=== PATIENT | female | born 1930 | race African-American/Black ===

== ENCOUNTER 2017-03-06 12:59 | Inpatient (IN) | payer MEDICARE, OTHER ==
--- NOTE | ~2017-03-06 | DS ---
Discharge Summary [facility] [address] [place]. [address] NAME: STELLA CASTRO : 31 STATUS : ADM IN [facility]#: [id number] AGE: 87 ADM/REG DATE : 03/08/17 MR#: [id number] REPORT SERV DATE: 03/11/17 DICTATED BY: EVERARDO PABLO DATE: 03/11/17 REPORT STATUS : Draft TRANSCRIBED BY: MODL DATE: 03/11/17 ADMISSION DATE: 03/08/2017 DISCHARGE DATE: 03/11/2017 DISCHARGE DIAGNOSES: 1. Acute urinary retention due to rectocele, currently resolved. 2. Constipation, currently resolved. 3. Acute exacerbation of asthma with chronic obstructive pulmonary disease, improving. 4. Hypertension, somewhat uncontrolled. 5. Acute kidney injury, now resolved. 6. Hyperlipidemia. 7. Possibility of volume overload, currently resolved. No evidence of heart failure. CONSULTANTS DURING THIS HOSPITALIZATION: None. INVASIVE PROCEDURES DONE DURING THIS HOSPITALIZATION: None. IMAGING DONE DURING THIS HOSPITALIZATION: Two-dimensional echocardiogram showed an ejection fraction of 60% without evidence of any valvular disease or wall motion abnormalities. BRIEF HISTORY OF PRESENT ILLNESS: The patient is an 87-year-old female, living independently at home, came in with difficulty urinating and cough. So, she was admitted. For detailed history and physical exam, please see note dictated by Dr. Laurie Roman on 03/08/2017. HOSPITAL COURSE: After being admitted to the hospital, this patient was initially thought to have volume overload. She was given some IV Lasix. She was noted to have acute kidney injury. Due to that, she was given 1 L of IV fluid, and this was done by Dr. Roman and Dr. Cool who followed her after her admission. I took over this patient's care on 03/09/2017. This patient was having significant wheezing at that time. Her chest x-ray had remained otherwise unremarkable. At this time, it was thought that this patient had acute exacerbation of asthma. She was put on aggressive nebulizing treatments and the ones that she was already on were intensified with using EzPAP. She continued to improve. However, blood pressure remained somewhat elevated. So, we increased her Norvasc to 5 mg twice daily. Lisinopril was added, and we continued her Norvasc. Today, she still has some expiratory wheezing but feels well enough that she could be discharged home and recover in the home setting. DISCHARGE DISPOSITION: Home. DISCHARGE ACTIVITY: As tolerated. DISCHARGE DIET: Low sodium, 1800-calorie [employer] diet. DISCHARGE MEDICATIONS: Aspirin 81 mg once daily; Tenormin 50 mg twice daily; simvastatin 20 mg once daily; Norvasc 5 mg twice daily; lisinopril 20 mg once daily; MiraLax one packet with 8 ounces of water over the counter; Spiriva one capsule inhalation via [employer]er once Discharge Summary [address] [place]. [address] NAME: STELLA CASTRO : 31 STATUS : ADM IN [facility]#: [id number] AGE: 87 ADM/REG DATE : 03/08/17 MR#: [id number] REPORT SERV DATE: 03/11/17 DICTATED BY: EVERARDO PABLO DATE: 03/11/17 REPORT STATUS : Draft TRANSCRIBED BY: JULIÁN DATE: 03/11/17 daily; Dulera 200/5 mg two puffs twice daily; and prednisone 20 mg p.o. once daily for 5 days. DISCHARGE FOLLOWUP: This patient does not have a PCP actively at this time, and she said she would look for it. I have given her the number to call for a referral service as well. More than 30 minutes spent planning this patient's discharge, reconciling medications, writing prescriptions, discussing hospital care, and followup with the patient. SHARATH/JULIÁN Everardo Pablo M.D. / [id number] CC: Everardo Pablo M.D.
--- NOTE | ~2017-03-06 | HP ---
History And Physical [address] [place]. [address] NAME: STELLA CASTRO : 32 STATUS : ADM [place] PAT#: [id number] AGE: 87 ADM/REG DATE : 03/06/17 MR#: [id number] REPORT SERV DATE: 03/06/17 DICTATED BY: SABINE SOLIS DATE: 03/06/17 REPORT STATUS : Draft TRANSCRIBED BY: MODL DATE: 03/06/17 DATE OF ADMISSION: 03/06/2017 CHIEF COMPLAINT: Difficulty urinating, cough. HISTORY OF PRESENT ILLNESS: The patient is an 87-year-old female who suffers from a history of hypertension and asthma. She states the last several days she has had cough with sputum, wheezing and coughing. This was one of the reason she came in, but she also came in as she had some difficulty urinating. She was noted by the ER staff to have a rectocele, which is easily reduced and a Yip catheter was placed. She has also had some intermittent constipation. She has had no documented fevers, no nausea, vomiting, and no diarrhea. No abdominal pain. No chest pain. Her primary care has left her practice, so she no longer has a primary care physician. She has not taken her blood pressure medication until about 5 minutes ago this morning. She has no history of heart failure. PAST MEDICAL HISTORY: 1. Asthma. 2. Hypertension. 3. Hyperlipidemia. SURGICAL HISTORY: None. FAMILY HISTORY: Negative for any heart disease or hypertension. SOCIAL HISTORY: She is a nondrinker, nonsmoker. She is and lives alone. ALLERGIES: NO KNOWN DRUG ALLERGIES. HOME MEDICATIONS: Aspirin 81 daily, atenolol 50 twice daily, and Zocor 20 daily. REVIEW OF SYSTEMS: Full 10-point review of systems obtained. Pertinent positives mentioned in the HPI. PHYSICAL EXAMINATION: VITAL SIGNS: 193/92, 98.5, 75, 16, 95%. GENERAL: Well-developed female. HEENT: Normocephalic, atraumatic. Throat is clear. NECK: Supple. HEART: Regular rate and rhythm. LUNGS: She has an occasional expiratory wheeze. ABDOMEN: Soft, mildly distended, but nontender. EXTREMITIES: Warm and dry. SKIN: Intact without rash or lesion. She has no peripheral edema. Rectocele was reduced by the ER physician. LABORATORY AND X-RAY: CBC is normal. CMP is essentially normal other than a glucose of 125. History And Physical [address] [place]. [address] NAME: STELLA CASTRO : 31 STATUS : ADM [place] PAT#: [id number] AGE: 87 ADM/REG DATE : 03/06/17 MR#: [id number] REPORT SERV DATE: 03/06/17 DICTATED BY: SABINE SOLIS DATE: 03/06/17 REPORT STATUS : Draft TRANSCRIBED BY: JULIÁN DATE: 03/06/17 Urinalysis does not show any significant white cells. BNP is 225. Chest x-ray shows some possible early CHF. KUB is negative. EKG shows sinus rhythm with a rate of 72 and normal EKG. ASSESSMENT/PLAN: 1. Difficulty urinating. I suspect some of this is due to rectocele and the constipation. I am going to treat her constipation. She has a Yip catheter in place. Her rectocele has been reduced. I think it would be reasonable to refer her to [facility] for a possible pessary, we could do that at discharge, hopefully take out the Yip tomorrow. She has no evidence of acute kidney injury and no urinary tract infections, so I think some of her symptoms are likely pressure related to the rectocele. 2. Possible asthma exacerbation. She does have some minimal wheezing. I am going to treat her with some doxycycline and some nebs. I do not think she needs additional steroids at this time. She is not requiring O2. 3. Possible volume overloaded/new congestive heart failure. She does have an elevated cardiac BNP, some changes on chest x-ray consistent with volume overload. Recommended echocardiogram, some cardiac enzymes. We will give her couple doses of Lasix, control her blood pressure and see how she looks in the morning. 4. Uncontrolled hypertension. I am going to add Norvasc to her regimen. She currently takes Tenormin. She is going to get diuresed a bit overnight. We are going to check an echocardiogram. Hopefully, we can get her blood pressure under better control. 5. Constipation. We will start MiraLAX. 6. Deep venous thrombosis prophylaxis. Subcutaneous Lovenox. 7. Disposition. Pending above. KRISTOPHER/JULIÁN Sabine Solis M.D. / [id number] CC: Sabine Solis M.D.
[2017-03-06 10:53] LABS: BASOPHILS 0.3 %; BASOPHILS ABSOLUTE 0.02 10/3/uL (0.0-0.16); EOSINOPHILS 0.4 %; EOSINOPHILS ABSOLUTE 0.03 10/3/uL (0.0-0.53); ER CBC TAT 0 Hrs 05 Mins; HEMOGLOBIN 13.9 g/dL (12.0-16.0); IMMATURE GRANULOCYTES 0.1 %; IMMATURE GRANULOCYTES ABSOLUTE 0.01 10/3/uL (0.0-0.11); LYMPHOCYTES 14.3 %; LYMPHOCYTES ABSOLUTE 0.97 10/3/uL (0.67-4.30); MEAN CORPUS HGB CONC 33.1 g/dL (32.0-36.0); MEAN CORPUSCULAR HEMOGLOB 29.7 pg (26.0-34.0); MEAN CORPUSCULAR VOLUME 89.7 fL (80-100); MEAN PLATELET VOLUME 9.7 fL (9.2-13.0); MONOCYTES 12.7 %; MONOCYTES ABSOLUTE 0.86 10/3/uL (0.21-1.20); NEUTROPHILS 72.2 %; PLATELET COUNT 218 10/3/uL (150-400); RBC DISTRIBUTION WIDTH 13.4 % (12.0-16.0); RED CELL COUNT 4.68 10/6/uL (4.0-5.6); WHITE BLOOD CELLS 6.8 10/3/uL (4.5-10.5)
[2017-03-06 10:54] LABS: MANUAL DIFF NO %
[2017-03-06 11:09] LABS: A/G RATIO 0.8 (0.7-1.9); ALBUMIN 3.6 G/DL (3.5-5.0); ALKALINE PHOSPHATASE 89 U/L (45-117); BUN (BLOOD UREA NITROGEN) 8 MG/DL (6-23); CALCIUM, SERUM 9.5 MG/DL (8.5-10.4); CHLORIDE, SERUM 103 MMOL/L (96-112); CO2 (CARBON DIOXIDE) 35 MMOL/L (24-34); CREATININE 1.01 MG/DL (0.55-1.02); GFR AFRICAN AMERICAN 58 ML/MIN (>=60); GFR NON AFRICAN AMERICAN 50 ML/MIN (>=60); GLOBULIN 4.5 G/DL (2.5-4.1); GLUCOSE, SERUM 125 MG/DL (60-99); POTASSIUM, SERUM 3.5 MMOL/L (3.5-5.3); SGOT(AST) 31 U/L (5-40); SGPT(ALT) 16 U/L (5-65); SODIUM, SERUM 142 MMOL/L (135-148); TOTAL BILIRUBIN 0.8 MG/DL (0-1.2); TOTAL PROTEIN 8.1 G/DL (6.0-8.5)
[2017-03-06 11:25] LABS: ASCORBIC ACID (UR NOT ORDER) NEG (NEG); BILIRUBIN, URINE NEGATIVE (NEG); ER URINALYSIS TAT 0 Hrs 09 Mins; KETONE, URINE TRACE MG/DL (NEG); LEUKOCYTE ESTERASE(NOT OR NEG (NEG); NITRITE (URINE) NEG (NEG); WBC (NOT ORDERED) (RFLEX) 5 (0-5)
[~2017-03-06 12:59] MED LIST: ASAB PO; ATEN50 PO; ZOCOR20 PO
[2017-03-06 15:56] LABS: TROPONIN I <0.02 NG/ML (<0.05)
[2017-03-07 03:49] LABS: BASOPHILS 0.1 %; BASOPHILS ABSOLUTE 0.01 10/3/uL (0.0-0.16); EOSINOPHILS 0 %; HEMOGLOBIN 13.4 g/dL (12.0-16.0); IMMATURE GRANULOCYTES 0.5 %; IMMATURE GRANULOCYTES ABSOLUTE 0.04 10/3/uL (0.0-0.11); LYMPHOCYTES 8.8 %; MANUAL DIFF NO %; MEAN CORPUS HGB CONC 33.5 g/dL (32.0-36.0); MEAN CORPUSCULAR HEMOGLOB 29.5 pg (26.0-34.0); MEAN CORPUSCULAR VOLUME 87.9 fL (80-100); MEAN PLATELET VOLUME 10.2 fL (9.2-13.0); MONOCYTES 6.5 %; MONOCYTES ABSOLUTE 0.52 10/3/uL (0.21-1.20); NEUTROPHILS 84.1 %; NEUTROPHILS ABSOLUTE 6.69 10/3/uL (2.02-8.40); PLATELET COUNT 263 10/3/uL (150-400); RBC DISTRIBUTION WIDTH 13.2 % (12.0-16.0); RED CELL COUNT 4.55 10/6/uL (4.0-5.6)
[2017-03-07 04:06] LABS: CALCIUM, SERUM 9.1 MG/DL (8.5-10.4); CHLORIDE, SERUM 101 MMOL/L (96-112); CREATININE 1.19 MG/DL (0.55-1.02); GFR AFRICAN AMERICAN 48 ML/MIN (>=60); GFR NON AFRICAN AMERICAN 41 ML/MIN (>=60); POTASSIUM, SERUM 3.6 MMOL/L (3.5-5.3); SODIUM, SERUM 139 MMOL/L (135-148); TROPONIN I 0.02 NG/ML (<0.05)
[2017-03-07 04:07] LABS: BUN (BLOOD UREA NITROGEN) 14 MG/DL (6-23); CO2 (CARBON DIOXIDE) 29 MMOL/L (24-34); GLUCOSE, SERUM 162 MG/DL (60-99)
[2017-03-08 04:27] LABS: CALCIUM, SERUM 9.1 MG/DL (8.5-10.4); CHLORIDE, SERUM 101 MMOL/L (96-112); CO2 (CARBON DIOXIDE) 28 MMOL/L (24-34); GFR AFRICAN AMERICAN 53 ML/MIN (>=60); GFR NON AFRICAN AMERICAN 45 ML/MIN (>=60); GLUCOSE, SERUM 145 MG/DL (60-99); POTASSIUM, SERUM 3.9 MMOL/L (3.5-5.3); SODIUM, SERUM 137 MMOL/L (135-148)
[2017-03-08 04:36] LABS: BUN (BLOOD UREA NITROGEN) 32 MG/DL (6-23)
[2017-03-09 06:10] LABS: BUN (BLOOD UREA NITROGEN) 31 MG/DL (6-23); CALCIUM, SERUM 8.9 MG/DL (8.5-10.4); CHLORIDE, SERUM 101 MMOL/L (96-112); CO2 (CARBON DIOXIDE) 26 MMOL/L (24-34); CREATININE 0.93 MG/DL (0.55-1.02); GFR AFRICAN AMERICAN 64 ML/MIN (>=60); GFR NON AFRICAN AMERICAN 56 ML/MIN (>=60); GLUCOSE, SERUM 125 MG/DL (60-99); POTASSIUM, SERUM 4.1 MMOL/L (3.5-5.3); SODIUM, SERUM 137 MMOL/L (135-148)
[2017-03-10 06:49] LABS: BASOPHILS 0.1 %; BASOPHILS ABSOLUTE 0.01 10/3/uL (0.0-0.16); EOSINOPHILS 0 %; HEMATOCRIT 40.8 % (36.0-48.0); HEMOGLOBIN 13.7 g/dL (12.0-16.0); IMMATURE GRANULOCYTES 0.5 %; IMMATURE GRANULOCYTES ABSOLUTE 0.08 10/3/uL (0.0-0.11); LYMPHOCYTES 13.6 %; LYMPHOCYTES ABSOLUTE 1.98 10/3/uL (0.67-4.30); MEAN CORPUS HGB CONC 33.6 g/dL (32.0-36.0); MEAN CORPUSCULAR HEMOGLOB 29.1 pg (26.0-34.0); MEAN CORPUSCULAR VOLUME 86.8 fL (80-100); MEAN PLATELET VOLUME 10.1 fL (9.2-13.0); MONOCYTES 9.2 %; MONOCYTES ABSOLUTE 1.34 10/3/uL (0.21-1.20); NEUTROPHILS 76.6 %; PLATELET COUNT 328 10/3/uL (150-400); RBC DISTRIBUTION WIDTH 13.4 % (12.0-16.0)
[2017-03-10 06:51] LABS: MANUAL DIFF NO %; WHITE BLOOD CELLS 14.6 10/3/uL (4.5-10.5)
[2017-03-10 06:55] LABS: ALBUMIN 3.2 G/DL (3.5-5.0); BUN (BLOOD UREA NITROGEN) 37 MG/DL (6-23); CHLORIDE, SERUM 101 MMOL/L (96-112); CO2 (CARBON DIOXIDE) 27 MMOL/L (24-34); CREATININE 1.12 MG/DL (0.55-1.02); GFR AFRICAN AMERICAN 52 ML/MIN (>=60); GFR NON AFRICAN AMERICAN 44 ML/MIN (>=60); GLUCOSE, SERUM 88 MG/DL (60-99); PHOSPHORUS, SERUM 2.4 MG/DL (2.5-4.5); SODIUM, SERUM 137 MMOL/L (135-148)
[2017-03-11] MEDS ORDERED: P20 PO (11:54)
[2017-03-11] MEDS ORDERED: DULERA 200 MCG/13 GM INH (11:54)
[2017-03-11] MEDS ORDERED: NORV5 PO (11:55)
[2017-03-11] MEDS ORDERED: SPIRIVA INH (11:56)
[2017-03-11] MEDS ORDERED: PRIN20 PO (13:38)
== END 2017-03-11 15:04 | disposition home or self-care (01) | DRG 191 ==
LOC: ER 12:59 → CDU1 13:09 → CDU2 14:29 → 4SO 03-08 14:10
PROVIDERS: Emergency Medicine; Internal Medicine
DX: J44.1 Chronic obstructive pulmonary disease with (acute) exacerbation (principal); N17.9 Acute kidney failure, unspecified; I10 Essential (primary) hypertension; N81.6 Rectocele; K59.00 Constipation, unspecified; E78.5 Hyperlipidemia, unspecified; Z79.82 Long term (current) use of aspirin; R33.8 Other retention of urine; E87.79 Other fluid overload
CPT/HCPCS: 71010; 71020; 74000; 80048; 80053; 80069; 81001; 83880; 84484; 85025; 93005; 93306; 94640; 96374; 99285; A9270-GY; J0360; J2930

== ENCOUNTER 2017-03-22 11:44 | Emergency (ER) | payer MEDICARE, OTHER ==
[2017-03-22 10:50] LABS: BASOPHILS 0.2 %; BASOPHILS ABSOLUTE 0.02 10/3/uL (0.0-0.16); EOSINOPHILS 0.5 %; EOSINOPHILS ABSOLUTE 0.05 10/3/uL (0.0-0.53); HEMATOCRIT 37.7 % (36.0-48.0); HEMOGLOBIN 12.7 g/dL (12.0-16.0); IMMATURE GRANULOCYTES 0.3 %; IMMATURE GRANULOCYTES ABSOLUTE 0.03 10/3/uL (0.0-0.11); LYMPHOCYTES 12.7 %; MEAN CORPUS HGB CONC 33.7 g/dL (32.0-36.0); MEAN CORPUSCULAR HEMOGLOB 29.7 pg (26.0-34.0); MEAN CORPUSCULAR VOLUME 88.1 fL (80-100); MEAN PLATELET VOLUME 9.2 fL (9.2-13.0); MONOCYTES 10.8 %; MONOCYTES ABSOLUTE 1.11 10/3/uL (0.21-1.20); NEUTROPHILS 75.5 %; NEUTROPHILS ABSOLUTE 7.75 10/3/uL (2.02-8.40); PLATELET COUNT 302 10/3/uL (150-400); RBC DISTRIBUTION WIDTH 13.6 % (12.0-16.0); RED CELL COUNT 4.28 10/6/uL (4.0-5.6); WHITE BLOOD CELLS 10.3 10/3/uL (4.5-10.5)
[2017-03-22 10:51] LABS: MANUAL DIFF NO %
[2017-03-22 10:55] LABS: ASCORBIC ACID (UR NOT ORDER) NEG (NEG); BILIRUBIN, URINE NEGATIVE (NEG); ER URINALYSIS TAT 0 Hrs 09 Mins; KETONE, URINE NEGATIVE (NEG); LEUKOCYTE ESTERASE(NOT OR NEG (NEG); NITRITE (URINE) NEG (NEG); WBC (NOT ORDERED) (RFLEX) 2 (0-5)
[2017-03-22 11:05] LABS: A/G RATIO 0.7 (0.7-1.9); ALBUMIN 2.8 G/DL (3.5-5.0); ALKALINE PHOSPHATASE 72 U/L (45-117); BUN (BLOOD UREA NITROGEN) 16 MG/DL (6-23); CHLORIDE, SERUM 104 MMOL/L (96-112); CO2 (CARBON DIOXIDE) 30 MMOL/L (24-34); GFR AFRICAN AMERICAN 53 ML/MIN (>=60); GFR NON AFRICAN AMERICAN 45 ML/MIN (>=60); GLUCOSE, SERUM 115 MG/DL (60-99); POTASSIUM, SERUM 4.6 MMOL/L (3.5-5.3); SGOT(AST) 14 U/L (5-40); SGPT(ALT) 15 U/L (5-65); SODIUM, SERUM 140 MMOL/L (135-148); TOTAL BILIRUBIN 0.9 MG/DL (0-1.2); TOTAL PROTEIN 6.8 G/DL (6.0-8.5)
[~2017-03-22 11:44] MED LIST changes: +DULERA 200 MCG/13 GM INH; +NORV5 PO; +P20 PO; +PRIN20 PO; +SPIRIVA INH
== END 2017-03-22 13:12 | disposition home or self-care (01) ==
LOC: ER 11:44
PROVIDERS: Emergency Medicine
DX: R18.8 Other ascites (principal); I10 Essential (primary) hypertension; J44.9 Chronic obstructive pulmonary disease, unspecified; J45.909 Unspecified asthma, uncomplicated; Z79.82 Long term (current) use of aspirin
CPT/HCPCS: 74176; 80053; 81001; 83690; 85025; 99284

== ENCOUNTER 2017-03-27 14:24 | Inpatient (IN) | payer MEDICARE, OTHER ==
--- NOTE | ~2017-03-27 | DS ---
Discharge Summary [facility] [address] [place]. [address] NAME: STELLA CASTRO : 32 STATUS : DIS IN PAT#: [id number] AGE: 87 ADM/REG DATE : 03/27/17 MR#: [id number] REPORT SERV DATE: 04/05/17 DICTATED BY: MASON RAHMAN DATE: 04/04/17 REPORT STATUS : Draft TRANSCRIBED BY: MODL DATE: 04/04/17 ADMISSION DATE: 03/27/2017 DISCHARGE DATE: 04/04/2017 DISCHARGE DIAGNOSES: 1. Metastatic peritoneal adenocarcinoma with malignant ascites. 2. Hypertension. 3. Rectal pain from hemorrhoid. 4. Status post Port-A-Cath placement by Dr. Tiwari. 5. Status post EGD/colonoscopy by Dr. Ayon. 6. Status post paracentesis, 3 L fluid removed. CONSULTATIONS: 1. Gynecology/Oncology, Dr. Sandoval. 2. Oncology, Dr. Astudillo. 3. GI, Dr. Ayon. 4. Surgery, Dr. Tiwari. IMAGIN. Chest x-ray, 03/27/2017 impression: Mild bibasilar atelectasis with underlying cardiomegaly. 2. Paracentesis, 03/28/2017 impression: Successful ultrasound-guided paracentesis. 3.06 L of fluid obtained. 3. Chest x-ray, 04/01/2017 impression: Successful Port-A-Cath placement. Left bibasilar atelectasis. 4. EGD/colonoscopy, 03/29/2017 impression: Normal examination with no suggestion of upper GI tract malignancy. Diverticulosis in the sigmoid colon. The examination was otherwise normal on direct and retroflexion views. 5. Port-A-Cath placement on 04/01/[address] Tiwari. Right subclavian vein Port-A-Cath placement under fluoroscopy completed. HOSPITAL STAY: Please refer to history and physical dictated by Dr. Castillo on 03/27/2017 for complete admission details. This patient is an 87-year-old female, who presented with the above history with complaints of abdominal pain and weight loss. Imaging was obtained upon admission. The patient was admitted with abdominal distention from malignant ascites. The patient did undergo paracentesis, which is noted above. 3 L of fluid was removed. The fluid was sent for cytology, which did return positive adenocarcinoma. The patient's CA-125 was noted elevated. Oncology was consulted but did defer to Dr. Sandoval, Gynecological/Oncology. The patient was evaluated by Dr. Sandoval. Port-A-Cath was placed per Dr. Tiwari. The patient did receive first cycle of Carbo/Taxol. The patient did undergo EGD and colonoscopy by Dr. Ayon, which was negative. The patient will follow up with Dr. Sandoval in 24 hours post discharge for Neulasta. Home Health has been arranged to follow the patient. The patient is being discharged home in hemodynamically stable condition. Discharge Summary [id number] [facility] [place]. [address] NAME: STELLA CASTRO : 32 STATUS : DIS IN PAT#: [id number] AGE: 87 ADM/REG DATE : 03/27/17 MR#: [id number] REPORT SERV DATE: 04/05/17 DICTATED BY: MASON RAHMAN DATE: 04/04/17 REPORT STATUS : Draft TRANSCRIBED BY: JULIÁN DATE: 04/04/17 DISCHARGE MEDICATION: 1. Norvasc 5 mg one p.o. daily. 2. Atenolol 50 mg one p.o. twice daily. 3. Lisinopril 20 mg one p.o. daily. 4. Decadron 4 mg one p.o. twice daily. 5. Anusol-HC cream per rectum 3 times daily. 6. Zofran 8 mg p.o. every eight hours p.r.n. for nausea. 7. MiraLAX powder 2 pack p.o. daily. 8. Neurontin 100 mg one p.o. every eight hours for pain. This discharge took less than 30 minutes. DICTATED BY: MILDRED Sawant/JULIÁN Mason Rahman NP / [id number] CC: Aurelio Murphy MD
--- NOTE | ~2017-03-27 | CN ---
Consultation Report [id number] [facility] [place]. [address] NAME: STELLA CASTRO : 32 STATUS : ADM IN PAT#: [id number] AGE: 87 ADM/REG DATE : 03/27/17 MR#: [id number] REPORT SERV DATE: 04/01/17 DICTATED BY: ANTONIO LONGORIA III DATE: 04/01/17 REPORT STATUS : Draft TRANSCRIBED BY: MODL DATE: 04/01/17 CONSULTATION DATE OF CONSULTATION: 04/01/2017 ATTENDING PHYSICIAN: Dr. Anthony and Dr. Phillip Sandoval. REASON FOR CONSULT: Recently diagnosed peritoneal adenocarcinoma, with need for evaluation for Port-A-Cath placement to allow for chronic IV access. HISTORY OF PRESENT ILLNESS: We have been asked to see this 87-year-old female in the hospital today for the above reasons. The patient was admitted to the hospital on 03/27/2017, with increasing abdominal pain, and abdominal distention, and constipation. She has had no bleeding. CT scan of the abdomen and pelvis performed on admission showed evidence for large volume of ascites, with abnormal thickening of the mesentery and omentum. The patient CA-19-9 was 12. Her CA-125 was elevated at 286. A paracentesis was performed with 3 L of fluid removed, and the peritoneal cytology positive for adenocarcinoma. The patient is felt to have carcinomatosis related adenocarcinoma of gynecologic origin. We have been asked by Dr. Sandoval the patient's minister helper to place a Port-A-Cath to allow for chemotherapy which will be needed. The patient's workup after admission including endoscopy and colonoscopy were normal with no evidence for malignancy. PAST MEDICAL HISTORY: 1. Hypertension. 2. Asthma. 3. COPD. MEDICATIONS: Norvasc, Tenormin, lisinopril, and MiraLAX. ALLERGIES: NONE. PAST SURGICAL HISTORY: Hernia repair, hysterectomy, with possible oophorectomy. SOCIAL HISTORY: The patient lives independently locally. No history of tobacco or alcohol use. FAMILY HISTORY: Positive for gastric cancer. REVIEW OF SYSTEMS: the patient's 14-point review of systems was otherwise unremarkable except for the above. PHYSICAL EXAMINATION: Consultation Report [id number] [place]. [address] NAME: STELLA CASTRO : 31 STATUS : ADM IN PAT#: [id number] AGE: 87 ADM/REG DATE : 03/27/17 MR#: [id number] REPORT SERV DATE: 04/01/17 DICTATED BY: ANTONIO LONGORIA III DATE: 04/01/17 REPORT STATUS : Draft TRANSCRIBED BY: JULIÁN DATE: 04/01/17 GENERAL: This is a pleasant female, in no acute distress. She is alert and oriented x3. VITAL SIGNS: Blood pressure 125/57, pulse 67, and temperature 98.7. HEENT: Unremarkable. NEUROLOGIC: Cranial nerves II through XII are normal. LUNGS: Clear. CARDIAC: Normal. ABDOMEN: Distended, but soft and nontender. LABORATORY AND DIAGNOSTIC DATA: Imaging studies and cytology are as above. 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 PLAN: The patient is in need of Port-A-Cath to allow for chronic IV access for chemotherapy, which will be needed for treatment of her malignancy. This will be done today in operating room. This procedure, the risks, benefits, and alternatives, including not limited to the risk for bleeding, infection, pneumothorax, air embolus, pericardial tamponade, failure of the port to function, infection of the port or subclavian vein thrombosis requiring removal of the port, dislodgement of the Port-A-Cath tubing requiring extraction, and unforeseen complications including deep venous thrombosis, pulmonary embolus, myocardial infarction, stroke, pneumonia, and , have been explained to the patient. Her questions have been answered. She understands the risks and agrees to surgery as planned. RHLouise/JULIÁN Antonio Longoria III, M.D. / [id number] CC: MD Valerie Tavarez II, MD
--- NOTE | ~2017-03-27 | EGD ---
EGD REPORT [facility] [address] [address] NAME: STELLA CURRY : 32 STATUS : ADM IN PAT#: [id number] AGE: 87 ADM/REG DATE : 03/27/17 MR#: [id number] REPORT SERV DATE: 03/29/17 DICTATED BY: FILIPPO MASON DATE: 03/29/17 REPORT STATUS : Draft TRANSCRIBED BY: [facility] DATE: 03/29/17 Endoscopy Center Patient Name: Stella Curry Date of : 1930 Attending MD: FILIPPO MASON MD Procedure Date No Time: 03/29/2017 Procedure: Colonoscopy Indications: Personal history of malignant neoplasm, Abnormal CT of the GI tract, Constipation Referring MD: Valerie Harris Medicines: Monitored Anesthesia Care Complications: No immediate complications. Estimated blood loss: None. Procedure: Pre-Anesthesia Assessment: - ASA Grade Assessment: III - A patient with severe systemic disease. After I obtained informed consent, the scope was passed under direct vision. Throughout the procedure, the patient's blood pressure, pulse, and oxygen saturations were monitored continuously. The CF [id number] was introduced through the anus and advanced to the cecum, identified by appendiceal orifice and ileocecal valve. The colonoscopy was performed without difficulty. The patient tolerated the procedure well. The quality of the bowel preparation was good. Findings: The perianal and digital rectal examinations were normal. Pertinent negatives include no palpable rectal lesions. Multiple small-mouthed diverticula were found in the sigmoid colon. The exam was otherwise without abnormality on direct and retroflexion views. Impression: - Diverticulosis in the sigmoid colon. - The examination was otherwise normal on direct and retroflexion views. Recommendation: - Return patient to [facility] for [facility] care. Procedure Code(s): --- Professional --- 68205, Colonoscopy, flexible, proximal to splenic flexure; diagnostic, with or without collection of specimen(s) by brushing or washing, with or without colon decompression (separate procedure) Diagnosis Code(s): --- Professional --- EGD REPORT [facility] [address] [facility] [place]. [address] NAME: STELLA CURRY : 32 STATUS : [facility]#: [id number] AGE: 87 ADM/REG DATE : 03/27/17 MR#: [id number] REPORT SERV DATE: 03/29/17 DICTATED BY: FILIPPO MASON DATE: 03/29/17 REPORT STATUS : Draft TRANSCRIBED BY: [employer] DATE: 03/29/17 K57.30, Diverticulosis of large intestine without perforation or abscess without bleeding Z85.9, Personal history of malignant neoplasm, unspecified R93.3, Abnormal findings on diagnostic imaging of other parts of digestive tract K59.00, Constipation, unspecified CPT copyright 2013 [employer]. All rights reserved. The codes documented in this report are preliminary and upon au pair review may be revised to meet current compliance requirements. Filippo Mason MD FILIPPO MASON MD 03/29/2017 10:08 AM This report has been signed electronically. Number of Addenda: 0 Note Initiated On: 03/29/2017 9:21 AM Scope Withdrawal Time 0 hours 5 minutes 27 seconds [address] [facility] [place] [place] [id number]
--- NOTE | ~2017-03-27 | OP ---
Record Of Operation [facility] [address] [place]. [address] NAME: STELLA CASTRO : 32 STATUS : ADM IN PAT#: [id number] AGE: 87 ADM/REG DATE : 03/27/17 MR#: [id number] REPORT SERV DATE: 04/01/17 DICTATED BY: ANTONIO LONGORIA III DATE: 04/01/17 REPORT STATUS : Draft TRANSCRIBED BY: MODL DATE: 04/01/17 DATE OF PROCEDURE: 04/01/2017 PREOPERATIVE DIAGNOSIS: Peritoneal adenocarcinoma with carcinomatosis, need for Port-A-Cath placement to allow for chronic IV access for chemotherapy. POSTOPERATIVE DIAGNOSIS: Peritoneal adenocarcinoma with carcinomatosis, need for Port-A-Cath placement to allow for chronic IV access for chemotherapy. PROCEDURE: Right subclavian vein Port-A-Cath placement with fluoroscopy. SURGEON: Antonio Longoria M.D. ANESTHESIA: Local with sedation. COMPLICATIONS: None. ESTIMATED BLOOD LOSS: Less than 5 mL. SPECIMENS: None. DRAINS: None. LAP AND SPONGE COUNT: Correct x3. BRIEF HISTORY: This 87-year-old female, who was recently diagnosed with malignant ascites. Her cytology shows adenocarcinoma, presumably of gynecologic origin. We have been asked by her treating physician to place a Port-A-Cath to allow for chronic IV access for chemotherapy. this procedure, the risks, benefits, and alternatives, including not limited to the risk for bleeding, infection, pneumothorax, air embolus, pericardial tamponade, failure of the port to function, infection of the port, or subclavian vein thrombosis requiring removal the port, dislodgement of the Port-A-Cath tubing requiring extraction, and unforeseen complications including deep venous thrombosis, pulmonary embolus, myocardial infarction, stroke, pneumonia, and , have been explained to the patient prior to surgery. Her questions were answered. She understood the risks and agreed to surgery as planned. DESCRIPTION OF PROCEDURE: After being properly identified, and after discussing the risks of surgery with her again in the preoperative area, the patient was taken to the operating room, and placed in the supine position on the operating room table. She was lightly sedated per Anesthesia. The upper chest and neck areas were prepped and draped sterilely in the usual fashion. After an appropriate "time-out" per JCAHO standards, the skin and subcutaneous tissue in the right infraclavicular area was injected with 0.5% Marcaine. After assuring adequate anesthesia, an 18-gauge needle was used to identify the right subclavian vein. The vein was identified on the first pass of the needle. A guidewire was passed through the needle and the needle was removed. Fluoroscopy was performed, confirming Record Of Operation [place] [id number] [facility] [place]. [address] NAME: STELLA CASTRO : 32 STATUS : ADM IN PAT#: [id number] AGE: 87 ADM/REG DATE : 03/27/17 MR#: [id number] REPORT SERV DATE: 04/01/17 DICTATED BY: ANTONIO LONGORIA III DATE: 04/01/17 REPORT STATUS : Draft TRANSCRIBED BY: JULIÁN DATE: 04/01/17 the correct position of the guidewire in the superior vena cava. A small transverse incision was then made at the exit site of the guidewire from the skin. A subcutaneous infraclavicular pocket was made of the appropriate size for the Port-A-Cath housing. The Port-A-Cath housing and tubing were assembled, flushed with a heparin solution, and the tubing cut to the appropriate length. The introducer was then placed over the guidewire. The guidewire and inner dilator were removed. The Port-A-Cath tubing was then placed through the sheath as the sheath was peeled away. This went very smoothly. The Port-A-Cath housing was positioned in the infraclavicular pocket. Repeat fluoroscopy was performed, confirming the tip of the Port-A-Cath tubing to be in the correct position in the superior vena cava. The port was accessed with a Taylor needle. It was noted to aspirate blood easily. It was then flushed with heparin solution and noted to flush easily. The port was secured to the chest wall with 2-0 silk sutures. Hemostasis was assured. The subcutaneous tissue was closed with a running 3-0 chromic suture. The skin was closed with a running subcuticular 4-0 Monocryl stitch. Dermabond was applied and the patient taken to recovery room in stable condition. She tolerated the procedure well. Her family was informed the results of surgery. Chest x-ray is pending. The patient will remain in the hospital for care regarding her malignancy. RHJ/MODL Antonio Longoria III, M.D. / [id number] CC: MD Valerie Tavarez II, MD
--- NOTE | ~2017-03-27 | HP ---
History And Physical [place] [id number] [facility] [place]. [address] NAME: STELLA CURRY : 32 STATUS : ADM IN [facility]#: [id number] AGE: 87 ADM/REG DATE : 03/27/17 MR#: [id number] REPORT SERV DATE: 03/28/17 DICTATED BY: ARIEL JOEL DATE: 03/27/17 REPORT STATUS : Draft TRANSCRIBED BY: MODL DATE: 03/27/17 DATE OF ADMISSION: 03/27/2017 HISTORY OF PRESENT ILLNESS: Ms. Curry is an 87-year-old -Russian female who is back in the hospital because of abdominal pain, increasing abdominal distention for the last one week or so. The patient also has a 6-pound weight loss, mild loss of appetite, and also states that she is extremely constipated. The patient also states that she has not had a bowel movement in the last two to three days, but every time she has a bowel movement, it is extremely painful. Specifically, I asked her and there is no blood in stool. There is no history of black stools. Other than this, review of systems is negative. The patient denies any headaches, blurry vision, chest pain, nausea, vomiting. The patient denies any history of ever throwing up or throwing up blood. The patient denies any history of ever having lost any blood in stool. The patient however has not had a colonoscopy either. She was scheduled to see her GI specialist, tomorrow possibly for both an upper and lower endoscopy. But before that, the patient's daughter states that her pain became so severe and her distention became so severe that she decided to bring her in today again. The patient also denies any hematuria. The patient does complain of more difficulty urination rather than dysuria per se. She states that she has to sit for a long time on the toilet bowl before she is even able to urinate. PAST MEDICAL HISTORY: Only significant for hypertension for which she takes medications on a regular basis. SOCIAL HISTORY: The patient does not smoke. Denies any alcohol use. Denies any illicit drug use. The patient lives independently and up until a week ago, she was able to be very independent and able to cook, clean by herself and very active. FAMILY HISTORY: Positive for GI cancers specially stomach cancer in her niece and also in her cousins in the family. ALLERGIES: THE PATIENT HAS NO KNOWN DRUG ALLERGIES. HOME MEDICATIONS: Include atenolol 50 mg p.o. b.i.d., amlodipine 5 mg p.o. b.i.d., Prinivil 20 mg once a day, and [place] 5/325 that she was given recently p.o. t.i.d. p.r.n. for abdominal pain. PHYSICAL EXAMINATION: GENERAL: The patient is alert, awake, oriented, able to give her history herself. She does not seem to be in any acute distress, but does complain of significant discomfort in her belly area. Skin and mucous membranes appear well hydrated. VITAL SIGNS: Show that her blood pressure is 157/53, pulse is 68 per minute, O2 sats 94% on room air, and the patient is afebrile. History And Physical [address] [address] NAME: STELLA CURRY : 32 STATUS : ADM IN [facility]#: [id number] AGE: 87 ADM/REG DATE : 03/27/17 MR#: [id number] REPORT SERV DATE: 03/28/17 DICTATED BY: ARIEL JOEL DATE: 03/27/17 REPORT STATUS : Draft TRANSCRIBED BY: JULIÁN DATE: 03/27/17 HEENT: Unremarkable. NECK: There is no JVD or lymphadenopathy in the neck. There is no supraclavicular lymphadenopathy. CARDIOVASCULAR SYSTEM: S1, S2 appreciated. Sinus rhythm. No murmurs, rubs, or gallops noted. RESPIRATORY SYSTEM: Clear lungs. No rales or rhonchi noted. Good lung expansion noted, but the lung expansion is physically limited because of the girth of the abdomen as the patient has severe ascites. ABDOMINAL: Reveals tense ascites. There is tenderness all over the abdomen, but deep palpation was not attempted. Clinically, I could not appreciate any masses but exam is limited because of the ascites. EXTREMITIES: There is no pedal edema. Pedal pulses are well felt. NEUROLOGICAL: No deficits. MUSCULOSKELETAL: No acute abnormalities. PSYCHIATRIC: Normal affect. LABORATORY DATA: I do have the following results on the patient. Her CBC is completely normal. Electrolytes are completely normal. BUN normal. Creatinine normal. Total protein 7.2, albumin 2.7, globulin 4.5, total bilirubin 0.8. Normal LFTs. Normal lipase. CT scan of the abdomen and pelvis without contrast that was done on 03/22/2017, reveals that the patient has moderate amount of ascites with abnormal thickening of the mesentery, and the omentum finding suspicious for malignancy/metastatic disease. No adenopathy. Surprisingly, the liver, spleen, pancreas, renal, kidneys, and gallbladder are all normal. The patient also has diverticulosis of colon without any diverticulitis. Uterus absent. ASSESSMENT: 1. Malignant ascites and abdominal pain. 2. Worsening ascites. 3. Carcinoma of unknown primary, most likely, GI, is the source here. 4. Weight loss of about 6-pound in the last week. 5. Extreme constipation and painful bowel movements. Right now, visibly there was no blood in stool, but the patient has not had a bowel movement for the last two days. 6. Hypertension. PLAN: To admit the patient to [facility] under defensive monitoring. Start her on IV fluids and also treat her symptomatically for abdominal pain. Give her supportive care and also treat her constipation with MiraLAX and Dulcolax suppository, if need be even give a soap suds enema. We will send off for stool for Hemoccult as soon as she is able to have a bowel movement but as mentioned above, there is no visible blood in stool. For increasing abdominal ascites which is likely malignant, we will go ahead and order therapeutic and diagnostic paracentesis and send off fluid for cytology, culture, gram stain, protein, glucose etc. We will also get a GI consult as the patient may need a colonoscopy first and probably even an upper endoscopy. We will also get an oncology consult to suggest further diagnostic workup in this patient History And Physical [address] [address] NAME: STELLA CURRY : 31 STATUS : ADM IN PAT#: [id number] AGE: 87 ADM/REG DATE : 03/27/17 MR#: [id number] REPORT SERV DATE: 03/28/17 DICTATED BY: ARIEL JOEL DATE: 03/27/17 REPORT STATUS : Draft TRANSCRIBED BY: MODL DATE: 03/27/17 with malignant ascites of unknown primary. This patient will be admitted under Oncology Service under Dr. Pablo for now, but [facility]2017. JANNETTE/JULIÁN Ariel Joel M.D. / [id number] CC: Aurelio Murphy MD
--- NOTE | ~2017-03-27 | CN ---
Consultation Report [facility] [address] [facility] [place]. [address] NAME: STELLA CURRY : 31 STATUS : ADM [facility]#: [id number] AGE: 87 ADM/REG DATE : 03/27/17 MR#: [id number] REPORT SERV DATE: 03/28/17 DICTATED BY: FILIPPO MASON DATE: 03/28/17 REPORT STATUS : Draft TRANSCRIBED BY: MODL DATE: 03/28/17 INPATIENT CONSULT NOTE DATE OF CONSULTATION: 03/28/2017 REASON FOR CONSULTATION: Concern for malignant ascites of unknown primary. HISTORY OF PRESENT ILLNESS: Mrs. Curry is a very pleasant 87-year-old female with no significant past medical history, who presented to the emergency department with complaints of abdominal discomfort, increasing distention, and approximately 5-to 10- pound weight loss over the last several weeks. The patient also complained of nauseousness and loss of appetite, but her primary complaint was significant acute constipation. The patient states that she has not had a bowel movement in the past several days, and when trying to pass stool, it has become extremely uncomfortable predominantly in the lower abdomen and rectal area. No blood in her stool by report. No black stools. The patient states that she has no history of GI related malignancies. There is no record of a colonoscopy in the system; however, the patient believes that she has had a colonoscopy sometime in the past may be either at [facility] or [facility] [place][Note 2]. REVIEW OF SYSTEMS: All systems reviewed and were negative aside from what was mentioned in the history of present illness. PAST MEDICAL HISTORY: Includes hypertension. FAMILY HISTORY: The patient has no significant family history of GI related malignancies per her and her daughter; however, review of the chart states that she may have a history of stomach cancer in her niece. However, further detail of this family history suggests that this was breast cancer with metastases to her stomach. SOCIAL HISTORY: The patient does not smoke, does not use alcohol, and does not use illicit substances. ALLERGIES: THE PATIENT HAS NO KNOWN DRUG ALLERGIES. OUTPATIENT MEDICATIONS: Include: 1. Atenolol. 2. Amlodipine. 3. Prinivil. 4. [place]. PHYSICAL EXAMINATION: VITAL SIGNS: Most recent vital signs include a temperature of 98.4, pulse of 65, blood pressure of 117/65, and saturating 97% on room air. Consultation Report [facility] [address] [place]. [address] NAME: STELLA CURRY : 31 STATUS : ADM IN PAT#: [id number] AGE: 87 ADM/REG DATE : 03/27/17 MR#: [id number] REPORT SERV DATE: 03/28/17 DICTATED BY: FILIPPO MASON DATE: 03/28/17 REPORT STATUS : Draft TRANSCRIBED BY: MODL DATE: 03/28/17 GENERAL INSPECTION: Reveals an elderly female, lying in bed, in no apparent distress. HEENT: Head is normocephalic and atraumatic with normal inspection of the oral mucosa and posterior pharynx. Sclerae nonicteric. Pupils are equal and round. NECK: Supple without lymphadenopathy. HEART: Rate is regular with normal S1, S2. LUNGS: Sounds are clear to auscultation bilaterally without wheezes, rales, or rhonchi. ABDOMEN: Soft with moderate distention. The patient does have tenderness to palpation in all four quadrants, but most prominent in the suprapubic and left lower quadrant areas. EXTREMITIES: No cyanosis, clubbing, or edema. SKIN: No jaundice or rash. NEUROLOGIC: No gross motor deficits. She is alert and oriented. Mood and affect are appropriate. Judgment appears to be intact. LABORATORY STUDIES: Most recent laboratory results include an occult blood that was negative. The patient had a comprehensive metabolic panel that was entirely unremarkable aside from a low albumin of 2.3. LFTs were normal as were electrolytes. The patient had a CEA checked that was 0.3, CA19-9 was 12.5, and CA-125 was markedly elevated at 286. CBC demonstrated white count of 8.1, hemoglobin of 11.8, and a platelet count of 340,000. DIAGNOSTIC STUDIES: CT of the abdomen and pelvis was reviewed personally by myself, which demonstrated a moderate amount of ascites with abnormal thickening of the mesentery and omentum suspicious for peritoneal studding and malignant ascites. No abnormal lymphadenopathy and no other signs of metastatic cancer. ASSESSMENT AND PLAN: Mrs. Curry is a very pleasant 87-year-old female with no significant past medical history, who presents with abdominal distention and new constipation and was found to have imaging evidence of very likely malignant ascites. With the patient's new constipation and pain with defecation, we would recommend performing colonoscopy especially where it is unclear if the patient has ever had one in the past. We would also perform an upper endoscopy to rule out any suggestion of gastric cancer. CA19-9 and CEA levels were normal with a markedly elevated CA-125. Because of this, it appears that a [employer] primary may be most likely, and we would therefore also recommend Gynecology-Oncology consult. However, given the patient's new constipation, pain with defecation, and concern for malignant ascites, we would proceed with evaluation to rule out a GI source as well. We would prep the patient for colonoscopy tonight and we will perform EGD and colonoscopy once the patient has been cleared. Thank you very much for this interesting consult and the chance to participate in Ms. Curry' care. Please call with any questions or concerns you might have. LEESA/JULIÁN Consultation Report [address] [place] [place] [address] NAME: STELLA CURRY : 32 STATUS : ADM IN PAT#: [id number] AGE: 87 ADM/REG DATE : 03/27/17 MR#: [id number] REPORT SERV DATE: 03/28/17 DICTATED BY: FILIPPO MASON DATE: 03/28/17 REPORT STATUS : Draft TRANSCRIBED BY: JUILÁN DATE: 03/28/17 Filippo Mason MD / [id number] CC: MD Valerie Tavarez II, MD
--- NOTE | ~2017-03-27 | EGD ---
EGD REPORT [facility] [address] [place] [address] NAME: STELLA CURRY : 31 STATUS : ADM IN PAT#: [id number] AGE: 87 ADM/REG DATE : 03/27/17 MR#: [id number] REPORT SERV DATE: 03/29/17 DICTATED BY: FILIPPO MASON DATE: 03/29/17 REPORT STATUS : Draft TRANSCRIBED BY: [facility] DATE: 03/29/17 Endoscopy Center Patient Name: Stella Curry Date of : 1930 Attending MD: FILIPPO MASON MD Procedure Date No Time: 03/29/2017 Procedure: Upper GI endoscopy Indications: Suspected tumor of the GI tract, Abnormal CT of the GI tract, Abdominal distention Medicines: Monitored Anesthesia Care Complications: No immediate complications. Estimated blood loss: None. Procedure: Pre-Anesthesia Assessment: - ASA Grade Assessment: III - A patient with severe systemic disease. After obtaining informed consent, the endoscope was passed under direct vision. Throughout the procedure, the patient's blood pressure, pulse, and oxygen saturations were monitored continuously. The GIF [id number] was introduced through the mouth, and advanced to the second part of duodenum. The upper GI endoscopy was accomplished without difficulty. The patient tolerated the procedure well. Findings: No gross lesions were noted in the entire esophagus. The entire examined stomach was normal. The examined duodenum was normal. The cardia and gastric fundus were normal on retroflexion. Impression: - Normal examination with no suggestion of an upper GI tract malignancy Recommendation: - Perform a colonoscopy today. Procedure Code(s): --- Professional --- 97729, Esophagogastroduodenoscopy, flexible, transoral; diagnostic, including collection of specimen(s) by brushing or washing, when performed (separate procedure) Diagnosis Code(s): --- Professional --- R93.3, Abnormal findings on diagnostic imaging of other parts of digestive tract R14.0, Abdominal distension (gaseous) EGD REPORT [facility] [address] [place] [address] NAME: STELLA CURRY : 31 STATUS : ADM IN [facility]#: [id number] AGE: 87 ADM/REG DATE : 03/27/17 MR#: [id number] REPORT SERV DATE: 03/29/17 DICTATED BY: FILIPPO MASON DATE: 03/29/17 REPORT STATUS : Draft TRANSCRIBED BY: [employer] DATE: 03/29/17 CPT copyright 2013 [employer]. All rights reserved. The codes documented in this report are preliminary and upon clinical trials manager review may be revised to meet current compliance requirements. Filippo Mason MD FILIPPO MASON MD 03/29/2017 9:50 AM This report has been signed electronically. Number of Addenda: 0 Note Initiated On: 03/29/2017 9:30 AM Scope Withdrawal Time 0 hours 0 minutes 0 seconds [id number] [place] [address]
--- NOTE | ~2017-03-27 | CN ---
Consultation Report [facility] [address] [place]. [address] NAME: STELLA CURRY : 32 STATUS : ADM IN PAT#: [id number] AGE: 87 ADM/REG DATE : 03/27/17 MR#: [id number] REPORT SERV DATE: 03/30/17 DICTATED BY: PHILLIP SANDOVAL DATE: 03/30/17 REPORT STATUS : Draft TRANSCRIBED BY: MODL DATE: 03/30/17 CONSULTATION NOTE DATE OF CONSULTATION: 03/30/2017 REASON FOR CONSULTATION: Ascites, elevated CA-125, and omental thickening. HISTORY OF PRESENT ILLNESS: Ms Curry is a delightful 87-year-old female, who reports early satiety and increasing abdominal girth for the past two weeks. She also has an unintended 6-pound weight loss. She was extremely constipated prior to coming to the hospital, but she had a colonoscopy yesterday and a bowel prep to care of those issues, at least in the short term. Her colonoscopy fortunately was negative. She had an elevated CA- 125, at just over 200 with a normal CEA and CA-19-9. I was consulted for the above reasons. PAST MEDICAL HISTORY: Hypertension. SOCIAL HISTORY: Negative for tobacco, alcohol, or illicit drug use. She lives at home, but she feels like she will need to go to her daughter's house. FAMILY HISTORY: Has a niece with gastric cancer. ALLERGIES: NO KNOWN DRUG ALLERGIES. PAST SURGICAL HISTORY: Hysterectomy with or without ovaries removed. She is unsure and in general a poor historian. HOME MEDICATIONS: See chart. PHYSICAL EXAMINATION: VITAL SIGNS: Her temperature is 98, pulse 62, and blood pressure is 116/57. HEENT: Normocephalic, atraumatic. HEART: Regular rate and rhythm. LUNGS: Clear to auscultation bilaterally. ABDOMEN: Distended, somewhat tympanic, likely after the insufflation of air during the colonoscopy, and no evidence of organomegaly. PELVIC: Deferred. EXTREMITIES: No clubbing, cyanosis, or edema. LABORATORY EVALUATION: CA-125 was 286, CEA was 0.3, and CA-19-9 was 12.5. The remainder of her laboratory evaluation was normal. She had a paracentesis done two days ago. IMPRESSION: In summary, this is an 87-year-old female with omental thickening on CT scan along with ascites. She had a paracentesis done on 03/27/2017. Pathology is still pending with a negative colonoscopy, if this is a malignancy, I will agree this probably represents Consultation Report [place] [address] [address] NAME: STELLA CURRY : 32 STATUS : ADM IN PAT#: [id number] AGE: 87 ADM/REG DATE : 03/27/17 MR#: [id number] REPORT SERV DATE: 03/30/17 DICTATED BY: PHILLIP SANDOVAL DATE: 03/30/17 REPORT STATUS : Draft TRANSCRIBED BY: MODEnedina DATE: 03/30/17 a gynecologic malignancy. Once the pathology is back and confirms this, I will have a hank and thorough discussion with Ms Curry regarding her treatment options. Thank you very much for this consultation. We will continue to follow until the pathology is ready. TB/JULIÁN Phillip Sandoval MD / [id number] CC: MD Valerie Tavarez II, MD
--- NOTE | ~2017-03-27 | DS ---
Discharge Summary [facility] [address] [facility] [place]. [address] NAME: STELLA CASTRO : 32 STATUS : ADM IN [facility]#: [id number] AGE: 87 ADM/REG DATE : 03/27/17 MR#: [id number] REPORT SERV DATE: 04/04/17 DICTATED BY: SMILEY MART II DATE: 04/03/17 REPORT STATUS : Draft TRANSCRIBED BY: MODL DATE: 04/03/17 ADMISSION DATE: 03/27/2017 DISCHARGE DATE: 04/04/2017 DISCHARGE DIAGNOSES: 1. Metastatic peritoneal adenocarcinoma with malignant ascites. 2. Hypertension. 3. Rectal pain from hemorrhoid. CONSULTS: 1. Dr. Sandoval with Gynecology/Oncology. 2. Dr. Astudillo with [facility]. 3. Dr. Ayon with GI. 4. Dr. Tiwari with Surgery. PROCEDURES: 1. Paracentesis with 3 L removed. Cytology positive for adenocarcinoma. 2. EGD and colonoscopy by Dr. Ayon with normal upper GI tract and diverticulosis in the colon, otherwise normal. 3. Port-A-Cath placement by Dr. Tiwari. BRIEF HISTORY OF PRESENT ILLNESS: The patient is an 87-year-old female with the above history, who presented to [facility] due to abdominal pain and weight loss. For detailed history and physical examination, please see Dr. Mago Dupont's note from 03/27/2017. HOSPITAL COURSE: CT scan of the abdomen and pelvis, which had actually been done on 03/22/2017 showed that the patient had a moderate amount of ascites with abnormal thickening in the mesentery, suspicious for peritoneal implants from metastatic disease. The patient was admitted for abdominal distention from malignant ascites and a paracentesis was performed. 3 L of fluid was taken off and cytology returned positive for adenocarcinoma. The patient's CA-125 was elevated consistent with likely PRESS ASSISTANT origin, so [facility] deferred to Dr. Sandoval. Dr. Sandoval has taken over and had a Port-A-Cath placed by Dr. Tiwari. He has started the first cycle of carbo/Taxol for which the patient has completed and tolerated well. Dr. Ayon had been consulted and performed an EGD and colonoscopy, which was unremarkable as noted above. Post colonoscopy, she did have some rectal pain and was complaining of hemorrhoids. This has been improved with Anusol HC cream and suppository. At this point, Dr. Sandoval is planning on letting the patient discharge home on 04/04/2017. Her pain is well controlled. She was started on gabapentin last night, which was noted to control her pain quite well, so this will be continued. She also has p.r.n. [place] at home. DISCHARGE MEDICATIONS: 1. Norvasc 5 mg p.o. b.i.d. 2. Atenolol 50 mg p.o. b.i.d. 3. [place] 5 mg/325 mg p.o. q.8 hours p.r.n. pain. 4. Lisinopril 20 mg p.o. daily. Discharge Summary [address] [address] NAME: STELLA CASTRO : 32 STATUS : ADM IN PAT#: [id number] AGE: 87 ADM/REG DATE : 03/27/17 MR#: [id number] REPORT SERV DATE: 04/04/17 DICTATED BY: SMILEY MART II DATE: 04/03/17 REPORT STATUS : Draft TRANSCRIBED BY: JULIÁN DATE: 04/03/17 5. Gabapentin 100 mg p.o. t.i.d. p.r.n. pain. DISCHARGE INSTRUCTIONS: The patient will follow up with Dr. Sandoval in one to two weeks. DICTATED BY: MD MARCELINO Tavarez II/JULIÁN Smiley Mart II, MD / [id number] CC: MD Valerie Tavarez II, MD
--- NOTE | ~2017-03-27 | CN ---
Consultation Report [facility] [address] [place]. [address] NAME: STELLA CURRY : 32 STATUS : ADM IN [facility]#: [id number] AGE: 87 ADM/REG DATE : 03/27/17 MR#: [id number] REPORT SERV DATE: 03/28/17 DICTATED BY: APOLLO BAUTISTA MARK SANDERS DATE: 03/28/17 REPORT STATUS : Draft TRANSCRIBED BY: MODL DATE: 03/28/17 CONSULTATION DATE OF CONSULTATION: 03/28/2017 REASON FOR CONSULTATION: Suspected malignant ascites. CHIEF COMPLAINT: Distended abdomen. HISTORY OF PRESENT ILLNESS: Ms. Curry is an 87-year-old female who is admitted with increasing abdominal distention for the last one to two weeks. She associates this with decreased appetite and a 6-pound weight loss. She also reports being extremely constipated with bowel movements only every two to three days. Reports her bowel movements are hard. Denies any blood in the stool, however. She denies any nausea or vomiting. Otherwise, she currently feels well. CT abdomen and pelvis without contrast revealed a moderate amount of ascites with thickening of the mesentery and omentum. This is concerning for metastatic disease. The abdominal organs appeared normal and there was no adenopathy noted. She reports previous history of a hysterectomy, but she is unsure if she kept her ovaries or not. She does not have a previous history of cancer. Currently, she denies any additional complaints. PAST MEDICAL HISTORY: Hypertension. SOCIAL HISTORY: She lives alone. She does not smoke. She does not use alcohol. FAMILY HISTORY: Significant for a niece reportedly with gastric cancer. ALLERGIES: NO KNOWN DRUG ALLERGIES. HOME MEDICATIONS: Reviewed on the chart. REVIEW OF SYSTEMS: A 12-point review of systems negative except as per HPI. PHYSICAL EXAMINATION: VITAL SIGNS: Blood pressure 119/60, pulse 65, temperature 98.8. GENERAL APPEARANCE: Well developed, well nourished, no acute distress. HEENT: Anicteric sclerae. Oropharynx clear. NECK: Supple. No lymphadenopathy. CARDIOVASCULAR: Regular rate and rhythm. Normal S1, S2. LUNGS: Clear to auscultation bilaterally. Fair effort. ABDOMEN: Distended. Mildly tender diffusely. No rebound. EXTREMITIES: No clubbing, cyanosis, or edema. Consultation Report [facility] [address] [place]. [address] NAME: STELLA CURRY : 31 STATUS : ADM IN PAT#: [id number] AGE: 87 ADM/REG DATE : 03/27/17 MR#: [id number] REPORT SERV DATE: 03/28/17 DICTATED BY: APOLLO BAUTISTA MARK SANDERS DATE: 03/28/17 REPORT STATUS : Draft TRANSCRIBED BY: JULIÁN DATE: 03/28/17 LABORATORY DATA: White count 8100, hemoglobin 11.8 g, platelets 340,000. Creatinine 0.81. Albumin 2.3. Total bilirubin 0.7. ASSESSMENT AND PLAN: Ms. Curry is an 87-year-old female, admitted with increasing abdominal distention and constipation. CT scan reveals a thickened omentum and mesentery with ascites. This is certainly concerning for malignancy. The most likely culprits would be a gastrointestinal or gynecologic cancer. There are orders written already for her to have a paracentesis with cytology. I agree with this. If this is unrevealing, an omental biopsy might need to be considered. I did discuss this with her. In the meanwhile, I will check some additional labs including CEA and CA19-9. Her hypertension is currently well controlled and I will defer management of this to colleagues. ELLA/JULIÁN Rodo Bautista IV, M.D. / [id number] CC: MD Valerie Tavarez II, MD
[2017-03-27 15:24] LABS: BASOPHILS 0.1 %; BASOPHILS ABSOLUTE 0.01 10/3/uL (0.0-0.16); EOSINOPHILS 0.4 %; EOSINOPHILS ABSOLUTE 0.04 10/3/uL (0.0-0.53); ER CBC TAT 0 Hrs 16 Mins; HEMATOCRIT 37.5 % (36.0-48.0); HEMOGLOBIN 12.4 g/dL (12.0-16.0); IMMATURE GRANULOCYTES 0.2 %; IMMATURE GRANULOCYTES ABSOLUTE 0.02 10/3/uL (0.0-0.11); LYMPHOCYTES 11.2 %; LYMPHOCYTES ABSOLUTE 1.01 10/3/uL (0.67-4.30); MANUAL DIFF NO %; MEAN CORPUS HGB CONC 33.1 g/dL (32.0-36.0); MEAN CORPUSCULAR HEMOGLOB 28.9 pg (26.0-34.0); MEAN CORPUSCULAR VOLUME 87.4 fL (80-100); MEAN PLATELET VOLUME 9.5 fL (9.2-13.0); MONOCYTES 8.6 %; MONOCYTES ABSOLUTE 0.77 10/3/uL (0.21-1.20); NEUTROPHILS 79.5 %; NEUTROPHILS ABSOLUTE 7.13 10/3/uL (2.02-8.40); PLATELET COUNT 363 10/3/uL (150-400); RBC DISTRIBUTION WIDTH 13.4 % (12.0-16.0); RED CELL COUNT 4.29 10/6/uL (4.0-5.6)
[2017-03-27 15:38] LABS: A/G RATIO 0.6 (0.7-1.9); ALBUMIN 2.7 G/DL (3.5-5.0); ALKALINE PHOSPHATASE 105 U/L (45-117); BUN (BLOOD UREA NITROGEN) 14 MG/DL (6-23); CALCIUM, SERUM 9.6 MG/DL (8.5-10.4); CHLORIDE, SERUM 104 MMOL/L (96-112); CO2 (CARBON DIOXIDE) 30 MMOL/L (24-34); CREATININE 0.83 MG/DL (0.55-1.02); GFR AFRICAN AMERICAN 74 ML/MIN (>=60); GFR NON AFRICAN AMERICAN 64 ML/MIN (>=60); GLOBULIN 4.5 G/DL (2.5-4.1); GLUCOSE, SERUM 112 MG/DL (60-99); POTASSIUM, SERUM 4.5 MMOL/L (3.5-5.3); SGOT(AST) 29 U/L (5-40); SGPT(ALT) 29 U/L (5-65); SODIUM, SERUM 139 MMOL/L (135-148); TOTAL BILIRUBIN 0.8 MG/DL (0-1.2); TOTAL PROTEIN 7.2 G/DL (6.0-8.5)
[2017-03-27] MEDS ORDERED: NORCO1 TA1 PO (17:05)
[2017-03-27 18:58] LABS: ASCORBIC ACID (UR NOT ORDER) NEG (NEG); BILIRUBIN, URINE NEGATIVE (NEG); KETONE, URINE NEGATIVE (NEG); LEUKOCYTE ESTERASE(NOT OR MOD (NEG); NITRITE (URINE) NEG (NEG); WBC (NOT ORDERED) (RFLEX) 9 (0-5)
[2017-03-27 20:54] LABS: PROCALCITONIN 0.14 ng/mL (<0.5)
[2017-03-28 04:58] LABS: ASCORBIC ACID (UR NOT ORDER) NEG (NEG); BILIRUBIN, URINE NEGATIVE (NEG); KETONE, URINE NEGATIVE (NEG); LEUKOCYTE ESTERASE(NOT OR NEG (NEG); WBC (NOT ORDERED) (RFLEX) 1 (0-5)
[2017-03-28 06:57] LABS: BASOPHILS 0.1 %; BASOPHILS ABSOLUTE 0.01 10/3/uL (0.0-0.16); EOSINOPHILS 0.6 %; EOSINOPHILS ABSOLUTE 0.05 10/3/uL (0.0-0.53); HEMATOCRIT 35.8 % (36.0-48.0); HEMOGLOBIN 11.8 g/dL (12.0-16.0); IMMATURE GRANULOCYTES 0.1 %; IMMATURE GRANULOCYTES ABSOLUTE 0.01 10/3/uL (0.0-0.11); LYMPHOCYTES 9.2 %; LYMPHOCYTES ABSOLUTE 0.75 10/3/uL (0.67-4.30); MEAN PLATELET VOLUME 9.5 fL (9.2-13.0); MONOCYTES 9.8 %; NEUTROPHILS 80.2 %; NEUTROPHILS ABSOLUTE 6.52 10/3/uL (2.02-8.40); PLATELET COUNT 340 10/3/uL (150-400); RBC DISTRIBUTION WIDTH 13.2 % (12.0-16.0); RED CELL COUNT 4.07 10/6/uL (4.0-5.6); WHITE BLOOD CELLS 8.1 10/3/uL (4.5-10.5)
[2017-03-28 07:02] LABS: MANUAL DIFF NO %
[2017-03-28 07:14] LABS: A/G RATIO 0.6 (0.7-1.9); ALBUMIN 2.3 G/DL (3.5-5.0); ALKALINE PHOSPHATASE 96 U/L (45-117); BUN (BLOOD UREA NITROGEN) 14 MG/DL (6-23); CALCIUM, SERUM 9.5 MG/DL (8.5-10.4); CHLORIDE, SERUM 105 MMOL/L (96-112); CO2 (CARBON DIOXIDE) 29 MMOL/L (24-34); CREATININE 0.81 MG/DL (0.55-1.02); GFR AFRICAN AMERICAN 76 ML/MIN (>=60); GFR NON AFRICAN AMERICAN 66 ML/MIN (>=60); GLOBULIN 4.1 G/DL (2.5-4.1); GLUCOSE, SERUM 125 MG/DL (60-99); POTASSIUM, SERUM 4.3 MMOL/L (3.5-5.3); SGOT(AST) 29 U/L (5-40); SGPT(ALT) 25 U/L (5-65); SODIUM, SERUM 141 MMOL/L (135-148); TOTAL BILIRUBIN 0.7 MG/DL (0-1.2); TOTAL PROTEIN 6.4 G/DL (6.0-8.5)
[2017-03-28 08:34] LABS: INTERNATIONAL NORMAL RATI 1.3 UNITS (-); PARTIAL THROMBO TIME 42.3 SEC (22.5-37.2); PROTIME (NOT ORD) 15.6 SEC (12.0-14.5)
[2017-03-28 08:46] LABS: ALBUMIN 2.2 G/DL (3.5-5.0); TOTAL PROTEIN 6.4 G/DL (6.0-8.5)
[2017-03-28 09:30] LABS: CA-19-9 12.5 U/ML (< 37.0); CEA 0.3 NG/ML
[2017-03-28 15:05] LABS: GLUCOSE BODY FL (NOT ORD) 113 MG/DL
[2017-03-28 15:18] LABS: PROTEIN BODY FLUID > 24.0 G/DL
[2017-03-28 15:22] LABS: BF TOTAL CELL CT (NOT ORD 2864 /MM3; BODY FLUID RBC (NOT ORD) 2088 /MM3
[2017-03-28 15:45] LABS: BD FL LYMPH (NOT ORD) 16 %; BF BASO (NOT OF) 0 %; BF LARGE MONONUCLEAR 16 %; BODY FLUID EOS (NOT ORD) 0 %; BODY FLUID SEG (NOT ORD) 68 %
[2017-03-28 15:46] LABS: BD FL SOURCE (NOT ORD) ASCITES
[2017-03-28 17:06] LABS: BD FL SOURCE (NOT ORD) ASCITES
[2017-03-29 06:38] LABS: INTERNATIONAL NORMAL RATI 1.2 UNITS (-); PARTIAL THROMBO TIME 32.6 SEC (22.5-37.2)
[2017-04-01 06:05] LABS: BASOPHILS 0.3 %; BASOPHILS ABSOLUTE 0.02 10/3/uL (0.0-0.16); EOSINOPHILS 1.3 %; HEMATOCRIT 35.4 % (36.0-48.0); HEMOGLOBIN 11.9 g/dL (12.0-16.0); IMMATURE GRANULOCYTES 0.4 %; IMMATURE GRANULOCYTES ABSOLUTE 0.03 10/3/uL (0.0-0.11); LYMPHOCYTES 13.9 %; LYMPHOCYTES ABSOLUTE 1.04 10/3/uL (0.67-4.30); MEAN CORPUS HGB CONC 33.6 g/dL (32.0-36.0); MEAN CORPUSCULAR HEMOGLOB 28.8 pg (26.0-34.0); MEAN CORPUSCULAR VOLUME 85.7 fL (80-100); MONOCYTES 12.7 %; MONOCYTES ABSOLUTE 0.95 10/3/uL (0.21-1.20); NEUTROPHILS 71.4 %; NEUTROPHILS ABSOLUTE 5.36 10/3/uL (2.02-8.40); PLATELET COUNT 425 10/3/uL (150-400); RBC DISTRIBUTION WIDTH 13.5 % (12.0-16.0); RED CELL COUNT 4.13 10/6/uL (4.0-5.6); WHITE BLOOD CELLS 7.5 10/3/uL (4.5-10.5)
[2017-04-01 06:11] LABS: MANUAL DIFF NO %
[2017-04-01 06:15] LABS: CALCIUM, SERUM 8.8 MG/DL (8.5-10.4); CHLORIDE, SERUM 108 MMOL/L (96-112); CO2 (CARBON DIOXIDE) 28 MMOL/L (24-34); CREATININE 0.71 MG/DL (0.55-1.02); GFR AFRICAN AMERICAN 89 ML/MIN (>=60); GFR NON AFRICAN AMERICAN 77 ML/MIN (>=60); POTASSIUM, SERUM 4.2 MMOL/L (3.5-5.3); SODIUM, SERUM 143 MMOL/L (135-148)
[2017-04-01 06:16] LABS: BUN (BLOOD UREA NITROGEN) 10 MG/DL (6-23); GLUCOSE, SERUM 81 MG/DL (60-99)
[2017-04-03 05:00] LABS: BASOPHILS 0 %; EOSINOPHILS 0 %; HEMATOCRIT 34.2 % (36.0-48.0); HEMOGLOBIN 11.3 g/dL (12.0-16.0); IMMATURE GRANULOCYTES 1.4 %; IMMATURE GRANULOCYTES ABSOLUTE 0.08 10/3/uL (0.0-0.11); LYMPHOCYTES 8.7 %; LYMPHOCYTES ABSOLUTE 0.51 10/3/uL (0.67-4.30); MEAN CORPUSCULAR HEMOGLOB 28.4 pg (26.0-34.0); MEAN CORPUSCULAR VOLUME 85.9 fL (80-100); MEAN PLATELET VOLUME 9.1 fL (9.2-13.0); MONOCYTES 0.7 %; MONOCYTES ABSOLUTE 0.04 10/3/uL (0.21-1.20); NEUTROPHILS 89.2 %; NEUTROPHILS ABSOLUTE 5.25 10/3/uL (2.02-8.40); PLATELET COUNT 469 10/3/uL (150-400); RBC DISTRIBUTION WIDTH 13.2 % (12.0-16.0); RED CELL COUNT 3.98 10/6/uL (4.0-5.6); WHITE BLOOD CELLS 5.9 10/3/uL (4.5-10.5)
[2017-04-03 05:01] LABS: MANUAL DIFF NO %
[2017-04-03 05:10] LABS: BUN (BLOOD UREA NITROGEN) 12 MG/DL (6-23); CALCIUM, SERUM 8.6 MG/DL (8.5-10.4); CHLORIDE, SERUM 111 MMOL/L (96-112); CO2 (CARBON DIOXIDE) 27 MMOL/L (24-34); CREATININE 0.74 MG/DL (0.55-1.02); GFR AFRICAN AMERICAN 85 ML/MIN (>=60); GFR NON AFRICAN AMERICAN 73 ML/MIN (>=60); SODIUM, SERUM 137 MMOL/L (135-148)
[2017-04-03 05:11] LABS: GLUCOSE, SERUM 137 MG/DL (60-99)
[2017-04-04 04:52] LABS: BASOPHILS 0 %; EOSINOPHILS 0 %; HEMATOCRIT 32.4 % (36.0-48.0); HEMOGLOBIN 10.8 g/dL (12.0-16.0); IMMATURE GRANULOCYTES 0.5 %; IMMATURE GRANULOCYTES ABSOLUTE 0.04 10/3/uL (0.0-0.11); LYMPHOCYTES 4.8 %; LYMPHOCYTES ABSOLUTE 0.41 10/3/uL (0.67-4.30); MEAN CORPUS HGB CONC 33.3 g/dL (32.0-36.0); MEAN CORPUSCULAR HEMOGLOB 28.3 pg (26.0-34.0); MEAN CORPUSCULAR VOLUME 84.8 fL (80-100); MEAN PLATELET VOLUME 9.5 fL (9.2-13.0); MONOCYTES 5.3 %; MONOCYTES ABSOLUTE 0.46 10/3/uL (0.21-1.20); NEUTROPHILS 89.4 %; NEUTROPHILS ABSOLUTE 7.69 10/3/uL (2.02-8.40); PLATELET COUNT 434 10/3/uL (150-400); RBC DISTRIBUTION WIDTH 13.2 % (12.0-16.0); RED CELL COUNT 3.82 10/6/uL (4.0-5.6)
[2017-04-04 04:57] LABS: MANUAL DIFF NO %; WHITE BLOOD CELLS 8.6 10/3/uL (4.5-10.5)
[2017-04-04 05:03] LABS: BUN (BLOOD UREA NITROGEN) 18 MG/DL (6-23); CALCIUM, SERUM 8.4 MG/DL (8.5-10.4); CHLORIDE, SERUM 106 MMOL/L (96-112); CO2 (CARBON DIOXIDE) 30 MMOL/L (24-34); CREATININE 0.84 MG/DL (0.55-1.02); GFR AFRICAN AMERICAN 73 ML/MIN (>=60); GFR NON AFRICAN AMERICAN 63 ML/MIN (>=60); GLUCOSE, SERUM 140 MG/DL (60-99); POTASSIUM, SERUM 3.9 MMOL/L (3.5-5.3); SODIUM, SERUM 143 MMOL/L (135-148)
[2017-04-04] MEDS ORDERED: ZOFRAN8 PO (09:45)
[2017-04-04] MEDS ORDERED: NEUR100 PO (10:20)
[2017-04-04] MEDS ORDERED: DEX4 PO (10:21)
[2017-04-04] MEDS ORDERED: MIRALAX POWDER1 PKT PO (10:22)
[2017-04-04] MEDS ORDERED: HYDROCORTISONE30 G1 TOP (10:25)
== END 2017-04-04 12:14 | disposition home health service (06) | DRG 375 ==
LOC: ER 14:24 → 4EA 18:36
PROVIDERS: Hospitalist; Internal Medicine; Internal Medicine Gastroenterology; Surgery
PROC: 0W9G3ZX Drainage of Peritoneal Cavity, Percutaneous Approach, Diagnostic (ICD-10-PCS; 2017-03-28)
PROC: 0DJD8ZZ Inspection of Lower Intestinal Tract, Via Natural or Artificial Opening Endoscopic (ICD-10-PCS; 2017-03-29)
PROC: 0DJ08ZZ Inspection of Upper Intestinal Tract, Via Natural or Artificial Opening Endoscopic (ICD-10-PCS; principal; 2017-03-29 08:30)
PROC: 05H533Z Insertion of Infusion Device into Right Subclavian Vein, Percutaneous Approach (ICD-10-PCS; 2017-04-01)
PROC: B5161ZA Fluoroscopy of Right Subclavian Vein using Low Osmolar Contrast, Guidance (ICD-10-PCS; 2017-04-01)
DX: C48.2 Malignant neoplasm of peritoneum, unspecified (principal); R18.0 Malignant ascites; I10 Essential (primary) hypertension; K64.9 Unspecified hemorrhoids
CPT/HCPCS: 49083; 71010; 71020; 77001; 80048; 80053; 81001; 82040; 82272; 82378; 82945; 82962; 83690; 84145; 84155; 84157; 85025; 85049; 85610; 85730; 86301; 86304; 87040; 87070; 87086; 87205; 88112; 88305; 88341; 88342; 89051; 93005; 99284; A9270-GY; C1751; J0690; J1170; J1200; J1453; J1720; J2250; J2405; J3010; J9045; J9267

== ENCOUNTER 2017-04-12 17:21 | Inpatient (IN) | payer MEDICARE, OTHER ==
--- NOTE | ~2017-04-12 | HP ---
History And Physical [id number] [place]. [address] NAME: STELLA CASTRO : 32 STATUS : ADM IN PAT#: [id number] AGE: 87 ADM/REG DATE : 04/12/17 MR#: [id number] REPORT SERV DATE: 04/13/17 DICTATED BY: PHILLIP SANDOVAL DATE: 04/13/17 REPORT STATUS : Draft TRANSCRIBED BY: MODEnedina DATE: 04/13/17 DATE OF ADMISSION: 04/12/2017 REASON FOR ADMISSION: Ovarian cancer, diarrhea, and fatigue. 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 She got her first cycle of [place] and taxane-based chemotherapy several weeks ago, and was given Neupogen as an outpatient. She called the office yesterday saying that she was seriously fatigued, and had significant diarrhea. She had a C. difficile that was checked in our office, which was negative, the one that was checked upon admission is still pending. She also had some nausea and was unable to take her post chemotherapy medications. She was admitted for supportive care. PAST MEDICAL HISTORY: Significant for hypertension. PAST SURGICAL HISTORY: Hysterectomy, unsure of her ovarian status following the surgery. SOCIAL HISTORY: Negative for tobacco, alcohol, or illicit drug use. She lives at home with her daughter. FAMILY HISTORY: She has a niece with gastric cancer. ALLERGIES: NO KNOWN DRUG ALLERGIES. HOME MEDICATIONS: See chart. PHYSICAL EXAMINATION: VITAL SIGNS: Her temperature is 98.7, her pulse ranges from 77 to 92, and blood pressure is 121/57. HEENT: Normocephalic, atraumatic. HEART: Regular rate and rhythm. LUNGS: Clear to auscultation bilaterally. ABDOMEN: Mildly distended, but less so than it was several weeks ago prior to chemotherapy. EXTREMITIES: No clubbing, cyanosis, or edema. PELVIC: Deferred. IMAGING: She has a KUB that was ordered, but has not taken yet. LABORATORY EVALUATION: Her white blood cell count is 19.2, but she recently got granulocyte colony-stimulating factor. She has normal hemoglobin and platelet count. Her potassium on admission was 2.9, now it is 3.7. She has a normal creatinine. ASSESSMENT AND PLAN: Going forward, we will continue IV fluid hydration. We will start Imodium and supportive care, and likely discharge home tomorrow. History And Physical [address] [facility] [address] NAME: STELLA CASTRO : 32 STATUS : ADM IN PAT#: [id number] AGE: 87 ADM/REG DATE : 04/12/17 MR#: [id number] REPORT SERV DATE: 04/13/17 DICTATED BY: PHILLIP SANDOVAL DATE: 04/13/17 REPORT STATUS : Draft TRANSCRIBED BY: JULIÁN DATE: 04/13/17 TB/JULIÁN Phillip Sandoval MD / [id number] CC: Phillip Sandoval MD
--- NOTE | ~2017-04-12 | DS ---
Discharge Summary [facility] [address] [place]. [address] NAME: STELLA CASTRO : 32 STATUS : DIS IN PAT#: [id number] AGE: 87 ADM/REG DATE : 04/12/17 MR#: [id number] REPORT SERV DATE: 04/26/17 DICTATED BY: PHILLIP SANDOVAL DATE: 04/25/17 REPORT STATUS : Draft TRANSCRIBED BY: JULIÁN DATE: 04/25/17 Data Collection from hospitalization DISCHARGE DIAGNOSIS(ES): 1. Ovarian cancer. 2. Diarrhea. 3. Fatigue. 4. Hypertension. CONSULTATIONS: None. PROCEDURES PERFORMED: None. MEDICATIONS: Norvasc 5 mg twice daily, Tenormin 50 mg twice daily, Neurontin 100 mg three times daily, Prinivil 20 mg daily, and Decadron 4 mg twice daily x3 days. CONDITION AT DISCHARGE: Upon discharge, she did appear to be doing well and had no complaints. DISPOSITION: She had been discharged with transfer to [facility]. To continue a regular diet with activity as discussed. 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 She had gotten her first cycle of [place] and taxane-based chemotherapy several weeks ago and was given Neupogen as an outpatient. She called the office on the day of admission saying that she was seriously fatigued and had significant diarrhea. She had Clostridium difficile that was checked in the office, which was negative. The one that was checked upon admission was still pending. She also had some nausea and was unable to take her post chemotherapy medication. She was admitted for supportive care. Upon admission to the hospital, she had been placed on a regular diet. She was begun on Lovenox at 40 mg subcutaneously daily, morphine 2-6 mg IV every two hours as needed, Percocet 5/325 one or two every 4-6 hours as needed for pain, and Zofran 8 mg IV every six hours as needed for nausea. Following the day of admission, she did appear to be doing well. She was afebrile, and her vital signs were stable. She was continued on supportive care. On 04/14/2017, she did report that she was still weak, however, her diarrhea had improved. She had had some nausea and vomiting, and her abdomen was distended. Hospice care was discussed with the patient versus palliative care and she had not made her decision as of yet. On 04/15/2017, she was noted to be feeling some better. However, she continued to decline any further chemotherapy and [facility] was to be consulted. On 04/16/2017, she had been evaluated by [facility] for admission to their services. She did remain in stable condition, and after discussion with [facility], she was in agreement with their services. She did appear to be comfortable. She had remained in stable condition throughout the rest of her hospital stay, and on 04/19/2017, she was discharged with transfer to [facility] under the care of [facility]. Information collected by: Marie DriscollI.T. I submit the above information as my discharge summary. Discharge Summary [address] [address] NAME: STELLA CASTRO : 32 STATUS : DIS IN PAT#: [id number] AGE: 87 ADM/REG DATE : 04/12/17 MR#: [id number] REPORT SERV DATE: 04/26/17 DICTATED BY: PHILLIP SANDOVAL DATE: 04/25/17 REPORT STATUS : Draft TRANSCRIBED BY: JULIÁN DATE: 04/25/17 MARIO/JULIÁN Phillip Sandoval MD / [id number] CC: Phillip Sandoval MD [facility]
[~2017-04-12 17:21] MED LIST changes: +DEX4 PO; +HYDROCORTISONE30 G1 TOP; +MIRALAX POWDER1 PKT PO; +NEUR100 PO; +NORCO1 TA1 PO; +ZOFRAN8 PO
[2017-04-12 18:12] LABS: BASOPHILS 0.3 %; BASOPHILS ABSOLUTE 0.05 10/3/uL (0.0-0.16); EOSINOPHILS 0.1 %; EOSINOPHILS ABSOLUTE 0.02 10/3/uL (0.0-0.53); HEMOGLOBIN 12.3 g/dL (12.0-16.0); IMMATURE GRANULOCYTES 7.8 %; LYMPHOCYTES 5.6 %; LYMPHOCYTES ABSOLUTE 1.08 10/3/uL (0.67-4.30); MEAN CORPUS HGB CONC 32.9 g/dL (32.0-36.0); MEAN CORPUSCULAR HEMOGLOB 28.4 pg (26.0-34.0); MEAN CORPUSCULAR VOLUME 86.4 fL (80-100); MEAN PLATELET VOLUME 10.7 fL (9.2-13.0); MONOCYTES 7.5 %; MONOCYTES ABSOLUTE 1.44 10/3/uL (0.21-1.20); NEUTROPHILS 78.7 %; NEUTROPHILS ABSOLUTE 15.09 10/3/uL (2.02-8.40); RBC DISTRIBUTION WIDTH 13.9 % (12.0-16.0); RED CELL COUNT 4.33 10/6/uL (4.0-5.6)
[2017-04-12 18:21] LABS: HEMATOCRIT 37.4 % (36.0-48.0); MANUAL DIFF NO %; PLATELET COUNT 138 10/3/uL (150-400); WHITE BLOOD CELLS 19.2 10/3/uL (4.5-10.5)
[2017-04-12 18:26] LABS: A/G RATIO 0.9 (0.7-1.9); ALKALINE PHOSPHATASE 148 U/L (45-117); BUN (BLOOD UREA NITROGEN) 23 MG/DL (6-23); CALCIUM, SERUM 9.3 MG/DL (8.5-10.4); CHLORIDE, SERUM 101 MMOL/L (96-112); CO2 (CARBON DIOXIDE) 28 MMOL/L (24-34); CREATININE 0.66 MG/DL (0.55-1.02); GFR AFRICAN AMERICAN 93 ML/MIN (>=60); GFR NON AFRICAN AMERICAN 80 ML/MIN (>=60); GLOBULIN 3.5 G/DL (2.5-4.1); GLUCOSE, SERUM 103 MG/DL (60-99); POTASSIUM, SERUM 2.9 MMOL/L (3.5-5.3); SGOT(AST) 34 U/L (5-40); SGPT(ALT) 54 U/L (5-65); SODIUM, SERUM 141 MMOL/L (135-148); TOTAL BILIRUBIN 0.5 MG/DL (0-1.2); TOTAL PROTEIN 6.5 G/DL (6.0-8.5)
[2017-04-12 18:32] LABS: BAND NEUTROPHILS 6 %; LYMPHOCYTES 4 %; LYMPHOCYTES ABSOLUTE (CALC) 0.77 10/3/uL (0.67-4.30); MONOCYTES 6 %; MONOCYTES ABSOLUTE (CALC) 1.15 10/3/uL (0.21-1.20); NEUTROPHILS ABSOLUTE (CALC) 17.28 10/3/uL (2.02-8.40); OVALOCYTES 1+ (3-10/OIF) (0-2/OIF); PLATELET ESTIMATE SLT DEC (ADEQUATE); SEGMENTED NEUTROPHIL (0) 84 %; SPHEROCYTES OCC (0-2/OIF); TEARDROP SHAPED RBCS OCC (0-2/OIF); TOTAL NUCLEATED CELLS 100
[2017-04-12 18:33] LABS: GIANT PLATELET RARE
[2017-04-12] MEDS ORDERED: NORV5 PO (20:36)
[2017-04-12] MEDS ORDERED: NEUR100 PO (20:37)
[2017-04-12] MEDS ORDERED: PRIN20 PO (20:37)
[2017-04-12] MEDS ORDERED: ATEN50 PO (20:38)
[2017-04-12] MEDS ORDERED: DEX4 PO (21:41)
[2017-04-13 04:16] LABS: BUN (BLOOD UREA NITROGEN) 21 MG/DL (6-23); CHLORIDE, SERUM 106 MMOL/L (96-112); CO2 (CARBON DIOXIDE) 30 MMOL/L (24-34); CREATININE 0.71 MG/DL (0.55-1.02); GFR AFRICAN AMERICAN 89 ML/MIN (>=60); GFR NON AFRICAN AMERICAN 77 ML/MIN (>=60); GLUCOSE, SERUM 98 MG/DL (60-99); SODIUM, SERUM 146 MMOL/L (135-148)
[2017-04-13 04:19] LABS: POTASSIUM, SERUM 3.7 MMOL/L (3.5-5.3)
== END 2017-04-19 13:45 | disposition hospice, inpatient (51) | DRG 756 ==
LOC: CDU2 17:21 → CDU1 17:26 → 4EA 04-13 15:41
PROVIDERS: Obstetrics & Gynecology Gynecology
DX: C56.9 Malignant neoplasm of unspecified ovary (principal); R19.7 Diarrhea, unspecified; Z51.5 Encounter for palliative care
CPT/HCPCS: 74020; 80048; 80053; 85025; 87493; 87493-59; A9270-GY; J2405